=== PATIENT | female | born 1930 | race Caucasian/White ===

== ENCOUNTER 2017-05-18 15:50 | Observation (INO) | payer MEDICARE, OTHER ==
[~2017-05-18] VITALS: Ht 149.9 cm; Wt 63.3 kg
[2017-05-18] VITALS (7 sets, daily range): BP systolic 119–177; BP diastolic 51–78; PULSE 63–73; RESP 16–18; TEMP 96.6–98.3; O2SAT 93–95
[~2017-05-18 15:50] MED LIST: LEVO100T60 PO; SERT50 PO
[2017-05-18] MEDS ORDERED: LEXA10TA PO (16:06)
[2017-05-18] MEDS ORDERED: LEVO100T5 PO (16:06)
[2017-05-18] MEDS ORDERED: LEXA20TA PO (16:06)
[2017-05-18] MEDS ORDERED: [UNRECOGNIZED DRUG - OTHER] EACH EYE (16:06)
[2017-05-18] MEDS ORDERED: OMEP20TA93 PO (16:06)
[2017-05-18] MEDS ORDERED: OXYT3.9D (16:06)
[2017-05-18 16:29] LABS: AUTOMATED NEUTROPHIL # 4.3 TH/MM3 (1.8-7.7); BASOPHIL # 0.1 TH/MM3 (0-0.2); BASOPHIL % 0.9 % (0.0-2.0); EOSINOPHIL # 0.1 TH/MM3 (0-0.4); EOSINOPHIL % 1.1 % (0.0-4.0); HEMATOCRIT 43.6 % (35.0-46.0); HEMO FLAGS DIFF FINAL; LYMPH % 21.2 % (9.0-44.0); LYMPHOCYTE # 1.4 TH/MM3 (1.0-4.8); MEAN CELL VOLUME 94.7 FL (80.0-100.0); MEAN CORPUSCULAR HEMOGLOBIN 32.3 PG (27.0-34.0); MEAN CORPUSCULAR HGB CONC 34.1 % (32.0-36.0); MONO % 8.5 % (0.0-8.0); NEUT % 68.3 % (16.0-70.0); PLATELET COUNT 222 TH/MM3 (150-450); WHITE BLOOD COUNT 6.4 TH/MM3 (4.0-11.0)
[2017-05-18 16:35] LABS: POTASSIUM 4.1 MEQ/L (3.5-5.1)
[2017-05-18 16:40] LABS: APTT (PATIENT) 25.8 SEC (24.3-30.1); INTERNATIONAL NORMALIZED RATIO 0.9 RATIO; PROTHROMBIN TIME - PATIENT 10.4 SEC (9.8-11.6)
--- NOTE | 2017-05-18 16:43 | RADRPT ---
EXAM DATE/TIME: 05/18/2017 16:24 [facility] COMPARISON: No previous studies available for comparison. INDICATIONS : Confusion. RADIATION DOSE: 55.69 CTDIvol (mGy) MEDICAL HISTORY : Hypothyroidism. Carcinoma, breast. SURGICAL HISTORY : Cholecystectomy. Mastectomy, bilateral. ENCOUNTER: Initial ACUITY: 1 day PAIN SCALE: 0/10 LOCATION: cranial TECHNIQUE: Multiple contiguous axial images were obtained of the head. Using automated exposure control and adj ustment of the mA and/or kV according to patient size, radiation dose was kept as low as reasonably a chievable to obtain optimal diagnostic quality images. DICOM format image data is available electro nically for review and comparison. FINDINGS: CEREBRUM: The ventricles are normal for age. No evidence of midline shift, mass lesion, hemorrhage or acute in farction. No extra-axial fluid collections are seen. POSTERIOR FOSSA: The cerebellum and brainstem are intact. The 4th ventricle is midline. The cerebellopontine angle i s unremarkable. EXTRACRANIAL: The visualized portion of the orbits is intact. SKULL: The calvaria is intact. No evidence of skull fracture. CONCLUSION: Negative for acute process. Diaz Cronin MD FACR on May 18, 2017 at 16:41 Board Certified Radiologist. This report was verified electronically.
--- NOTE | 2017-05-18 17:13 | PD ---
HPI Chief Complaint: Neuro Symptoms/ Deficits Time Seen by Provider: 15:53 Travel History International Travel<30 days: No Contact w/Intl Traveler<30days: No Traveled to known affect area: No History of Present Illness HPI 86yo F with PMH of breast CA s/p bilateral mastectomy 1999, hypothyroidism presents to the ED stating she had a TIA. 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 Said from 1pm to 1:20pm, she did not know what happened and cant remember. Said she had a dentist appointment at 2pm today and she could not remember where the office was. Said this has never happened before. Denies any fever, chest pain, sob, n/v, abdominal pain, focal weakness or numbness. PFSH Past Medical History Depression: Yes Cancer: Yes (REMISSION AFTER MASTECTOMY) Diminished Hearing: No GERD: Yes Medical other: Yes Immunizations Current: Yes Thyroid Disease: Yes (HYPOTHYROIDISM) Tetanus Vaccination: Unknown Influenza Vaccination: No Past Surgical History Cholecystectomy: Yes Hysterectomy: Yes Joint Replacement: Yes (BILAT KNEE REPLACEMENT) Mastectomy: Yes (BILAT MASTECTOMY APPROX SEP 2008- ALL LYMPH NODE REMOVED ON LEFT) Social History Alcohol Use: Yes (1- DRINKS DAILY) Tobacco Use: No Substance Use: No Allergies-Medications (Allergen,Severity, Reaction): Coded Allergies: No Known Allergies (Verified Adverse Reaction, Unknown, 05/18/17) Reported Meds & Prescriptions Reported Meds & Active Scripts Active Reported Oxytrol Patch (Oxybutynin Chloride) 3.9 mg/24 hr Patch [Timerol ] 1 Drop EACH EYE BID Lexapro (Escitalopram Oxalate) 20 Mg Tab 20 Mg PO DAILY Lexapro (Escitalopram Oxalate) 10 Mg Tab 10 Mg PO DAILY Omeprazole 20 Mg Tab 20 Mg PO DAILY Levothyroxine (Levothyroxine Sodium) 100 Mcg Tab 100 Mcg PO DAILY Review of Systems Except as stated in HPI: all other systems reviewed are Neg Physical Exam Narrative GENERAL: 86yo F not in distress. SKIN: Focused skin assessment warm/dry. HEAD: Atraumatic. Normocephalic. EYES: Pupils equal and round. No scleral icterus. No injection or drainage. NECK: Trachea midline. No JVD. CARDIOVASCULAR: Regular rate and rhythm. No murmur appreciated. RESPIRATORY: No accessory muscle use. Clear to auscultation. Breath sounds equal bilaterally. GASTROINTESTINAL: Abdomen soft, non-tender, nondistended. MUSCULOSKELETAL: No obvious deformities. No clubbing. No cyanosis. No edema. NEUROLOGICAL: Awake and alert. No obvious cranial nerve deficits. Motor grossly within normal limits. Normal speech. NIH stroke scale 0. PSYCHIATRIC: Appropriate mood and affect; insight and judgment normal. Data Data Last Documented VS Vital Signs Date Time Temp Pulse Resp B/P (MAP) Pulse Ox O2 Delivery O2 Flow Rate FiO2 05/18/17 17:29 64 16 138/56 (83) 94 Room Air 05/18/17 16:[address] Brain W/O Iv Contrast(Rout) (05/18/17 ) Complete Blood Count With Diff (05/18/17 16:03) Basic Metabolic Panel (Bmp) (05/18/17 16:03) Prothrombin Time / Inr (Pt) (05/18/17 16:03) Act Partial Throm Time (Ptt) (05/18/17 16:03) Aspirin (Aspirin) (05/18/17 17:15) Labs Laboratory Tests Test 05/18/17 16:22 White Blood Count 6.4 TH/MM3 Red Blood Count 4.60 MIL/MM3 Hemoglobin 14.9 GM/DL Hematocrit 43.6 % Mean Corpuscular Volume 94.7 FL Mean Corpuscular Hemoglobin 32.3 PG Mean Corpuscular Hemoglobin Concent 34.1 % Red Cell Distribution Width 13.0 % Platelet Count 222 TH/MM3 Mean Platelet Volume 8.2 FL Neutrophils (%) (Auto) 68.3 % Lymphocytes (%) (Auto) 21.2 % Monocytes (%) (Auto) 8.5 % Eosinophils (%) (Auto) 1.1 % Basophils (%) (Auto) 0.9 % Neutrophils # (Auto) 4.3 TH/MM3 Lymphocytes # (Auto) 1.4 TH/MM3 Monocytes # (Auto) 0.5 TH/MM3 Eosinophils # (Auto) 0.1 TH/MM3 Basophils # (Auto) 0.1 TH/MM3 CBC Comment DIFF FINAL Differential Comment Prothrombin Time 10.4 SEC Prothromb Time International Ratio 0.9 RATIO Activated Partial Thromboplast Time 25.8 SEC Blood Urea Nitrogen 22 MG/DL Creatinine 0.71 MG/DL Random Glucose 91 MG/DL Calcium Level 9.3 MG/DL Sodium Level 137 MEQ/L Potassium Level 4.1 MEQ/L Chloride Level 100 MEQ/L Carbon Dioxide Level 31.0 MEQ/L Anion Gap 6 MEQ/L Estimat Glomerular Filtration Rate 78 ML/MIN MDM Medical Decision Making Medical Screen Exam Complete: Yes Emergency Medical Condition: Yes Differential Diagnosis TIA vs. dementia vs. delirium vs. electrolyte abnormality Narrative Course 86yo F with episode of confusion concerning for possible TIA. Pt has no symptoms now. Labs reviewed, no leukocytosis. BUN mildly elevated at 22. CT brain negative. Discussed with neurologist patient registration supervisor Dr. Valencia and agree to admit for observation for TIA work up. I discussed with pt's PMD Dr. Becerra and she agrees and said actually the hospitalist service admits her patients now. Pt given aspirin. Discussed with Dr. Curry and accepted to his service. Diagnosis Primary Impression: TIA (transient ischemic attack) Qualified Codes: G45.9 - Transient cerebral ischemic attack, unspecified Admitting Information Admitting Physician Requests: Observation Sylvia Demarco DO May 18, 2017 17:13
[2017-05-18] MEDS ORDERED: ASPIRIN 325 MG TAB PO ONE (17:15)
[2017-05-18] MEDS: SODIUM CHLOR 0.9% 1000 ML INJ 1,000 ML IV SCH ×2 (18:04→18:13)
[2017-05-18 20:39] LABS: HDL CHOLESTEROL 76.7 MG/DL (40.0-60.0)
[2017-05-18] MEDS ORDERED: ATORVASTATIN 40 MG TAB PO SCH (21:00)
[2017-05-19] VITALS (7 sets, daily range): BP systolic 117–168; BP diastolic 61–84; PULSE 62–74; RESP 16–18; TEMP 96–98.2; O2SAT 93–96
--- NOTE | 2017-05-19 08:29 | RADRPT ---
EXAM DATE/TIME: 05/19/2017 07:48 [facility] COMPARISON: No previous studies available for comparison. INDICATIONS : Transient ischemic attack. MEDICAL HISTORY : Hypothyroidism. Arthritis. Osteoporosis. GERD. Carcinoma, breast. Depression. SURGICAL HISTORY : Cholecystectomy. Mastectomy, bilateral. Hysterectomy. Bilateral cataracts and retinal detach. Bilater al knee replacement. ENCOUNTER: Initial ACUITY: 1 day PAIN SCORE: 0/10 LOCATION: Bilateral neck PEAK SYSTOLIC VELOCITIES (cm/sec): ICA/CCA RATIO: Right: 1.3 Left: 1.3 ICA: Right: 75 Left: 87 CCA: Right: 57 Left: 67 ECA: Right: 58 Left: 47 VERTEBRAL: Right: 36 antegrade Left: 49 antegrade Elevated flow velocities and ICA/CCA ratios have been found to correlate with increased degrees of vessel stenosis, calculated as percentage of diameter relative to a normal segment of distal ICA/CCA FINDINGS: RIGHT CAROTID: No significant stenosis is visualized. The waveforms are within normal limits. LEFT CAROTID: No significant stenosis is visualized. The waveforms are within normal limits. VERTEBRAL ARTERIES: Antegrade flow is seen in both vertebral arteries. MISCELLANEOUS: None. CONCLUSION: 1. Patent carotid arteries bilaterally. 2. Antegrade flow involving both vertebral arteries. Harley Parra Jr., MD on May 19, 2017 at 8:25 Board Certified Radiologist. This report was verified electronically.
[2017-05-19] MEDS ORDERED: ESCITALOPRAM OXALATE 20 MG TAB PO SCH (11:00)
[2017-05-19] MEDS ORDERED: LEVOTHYROXINE SODIUM 100 MCG TAB PO ONE (12:45)
[2017-05-19] MEDS ORDERED: PANTOPRAZOLE SOD 20 MG DELAYED RELEASE TAB PO SCH (12:45)
[2017-05-19] MEDS: SODIUM CHLOR 0.9% 1000 ML INJ 1,000 ML IV SCH (13:38)
--- NOTE | 2017-05-19 15:20 | RADRPT ---
EXAM DATE/TIME: 05/19/2017 14:12 [facility] COMPARISON: CT BRAIN W/O CONTRAST, May 18, 2017, 16:24. INDICATIONS : CVA. MEDICAL HISTORY : Carcinoma, breast. Hypothyroidism. Arthritis. Osteoporosis. GERD. SURGICAL HISTORY : Mastectomy, bilateral. Cholecystectomy. Hysterectomy. Bilateral knee replacement. Cataracts. ENCOUNTER: Subsequent ACUITY: 2 day PAIN SCORE: 0/10 LOCATION: cranial TECHNIQUE: Multiplanar, multisequence MRI of the brain was performed without contrast. FINDINGS: CEREBRUM: The ventricles are normal for age. No evidence of midline shift, mass lesion, hemorrhage or acute in farction. No extraaxial fluid collections are seen. The pituitary gland and suprasellar cistern are normal in configuration. WHITE MATTER: Extensive periventricular high flair signal involving both cerebral hemispheres. High flair signal wi thin the central portion of the sarkis. No involvement of the peripheral portion of the sarkis or subcort ical U. fibers. POSTERIOR FOSSA: The cerebellum and brainstem are intact. The 4th ventricle is midline. The cerebellopontine angle is unremarkable. The cerebellar tonsils are normal in position. DIFFUSION IMAGING: No focal areas of restricted diffusion are seen. No evidence of acute infarction. EXTRACRANIAL: The visualized portions of the orbits and paranasal sinuses are unremarkable. CONCLUSION: 1. No acute intracranial abnormality. 2. Extensive chronic small vessel ischemic change. 3. Atrophy. Harley Parra Jr., MD on May 19, 2017 at 15:13 Board Certified Radiologist. This report was verified electronically.
[2017-05-19] MEDS ORDERED: ASPI-183 PO (17:23)
[2017-05-19] MEDS ORDERED: ATOR40TA16 PO (17:23)
--- NOTE | 2017-05-19 17:24 | HHI.DCPOC ---
Discharge Care Plan Diagnosis: (1) TIA (transient ischemic attack) Goals to Promote Your Health * To prevent worsening of your condition and complications * To maintain your health at the optimal level Directions to Meet Your Goals Take your medications as prescribed Follow your dietary instruction Follow activity as directed Keep your appointments as scheduled Take your immunizations and boosters as scheduled If your symptoms worsen call your PCP, if no PCP go to Urgent Care Center or Emergency Room Smoking is Dangerous to Your Health. Avoid second hand smoke Call the 24-hour hour crisis hotline for domestic abuse at Norma Ngo May 19, 2017 17:24
--- NOTE | 2017-05-19 17:32 | HHI.HP ---
[facility] Kaley Becerra MD Admission Diagnosis TIA Diagnoses: (1) TIA (transient ischemic attack) Chief Complaint: Confusion Travel History International Travel<30 Days: No Contact w/Intl Traveler <30 Da: No Traveled to Known Affected Are: No History of Present Illness Written by Norma Ngo, acting as scribe for Dr. La on 05/19/17 at 17: 25. Ms. Mccoy is an 86-year-old female patient with a known medical history of breast cancer with mastectomy and hypothyroidism who presented to the ED with complaints of confusion. Patient states she was sitting at her computer yesterday and realized she was late for her doctor's appointment so she jumped up and got in the car and quickly forgot where she was headed. She went back inside to look on her calendar, quickly remembering her dentist appointment and then while driving she forgot again where she was going. She decided to come into the ED instead. She denies ever having this type of episode in the past. Denies any recent fever, chills, chest pain, cough, shortness of breath, ab pain , n/v/d or dysuria. Does admit to relatively good health. Review of Systems Constitutional: DENIES: Fever Endocrine: DENIES: Polyuria Eyes: DENIES: Blurred vision Respiratory: DENIES: Cough, Shortness of breath Cardiovascular: DENIES: Chest pain, Palpitations Gastrointestinal: DENIES: Abdominal pain, Black stools, Constipation, Diarrhea , Nausea, Vomiting Psychiatric: COMPLAINS OF: Anxiety, Confusion Except as stated in HPI: all other systems reviewed are Neg Past Family Social History Past Medical History Breast cancer with bilateral mastectomy Hypothyroidism Past Surgical History Bilateral mastectomy Cholecystectomy Bilateral knee replacement Reported Medications Active Aspirin 325 Mg Tab 325 Mg PO DAILY Atorvastatin (Atorvastatin Calcium) 40 Mg Tab 40 Mg PO HS 30 Days Reported Oxytrol Patch (Oxybutynin Chloride) 3.9 mg/24 hr Patch [Timerol ] 1 Drop EACH EYE BID Lexapro (Escitalopram Oxalate) 20 Mg Tab 20 Mg PO DAILY Lexapro (Escitalopram Oxalate) 10 Mg Tab 10 Mg PO DAILY Omeprazole 20 Mg Tab 20 Mg PO DAILY Levothyroxine (Levothyroxine Sodium) 100 Mcg Tab 100 Mcg PO DAILY Allergies: Coded Allergies: No Known Allergies (Verified Allergy, Unknown, 05/18/17) Active Ordered Medications Current Medications Medications (Trade) Dose Ordered Sig/Catalina Route Start Time Stop Time Status Last Admin Sodium Chloride 1,000 ml @ 100 mls/hr Q10H IV 05/18/17 17:38 (Lipitor) 40 mg HS PO 05/18/17 21:00 (Lexapro) 20 mg DAILY PO 05/19/17 11:00 05/19/17 11:57 (Synthroid) 100 mcg DAILY@0600 PO 05/20/17 12:00 Patient Own Medication PT OWN MED: BID EACH EYE 05/19/17 21:00 Future Hold (Protonix) 20 mg DAILY PO 05/19/17 12:45 05/19/17 12:36 Family History Daughter has active dementia. Social History Denies any current tobacco use. Denies any alcohol use. Denies any illicit drug use. Physical Exam Vital Signs Vital Signs Date Time Temp Pulse Resp B/P (MAP) Pulse Ox O2 Delivery O2 Flow Rate FiO2 05/19/17 16:00 97.0 74 16 117/71 (86) 96 05/19/17 15:13 66 05/19/17 12:00 98.2 66 16 124/71 (88) 93 05/19/17 08:00 96.0 69 96 05/19/17 07:00 69 05/19/17 04:00 96.9 69 16 126/61 (82) 93 05/19/17 00:00 96.5 62 18 168/84 (112) 94 05/18/17 23:00 66 05/18/17 20:06 68 18 129/58 (81) 100 05/18/17 20:00 96.6 63 18 144/65 (91) 95 05/18/17 19:00 70 16 124/51 (75) 95 Room Air 05/18/17 19:00 70 16 95 Room Air 05/18/17 18:46 98.1 73 17 119/55 (76) 95 Room Air 05/18/17 17:29 64 16 138/56 (83) 94 Room Air Physical Exam GENERAL: This is a well-nourished, well-developed patient, in no apparent distress. SKIN: No rashes, ecchymoses or lesions. Cool and dry. HEAD: Atraumatic. Normocephalic. No temporal or scalp tenderness. EYES: Pupils equal round and reactive. Extraocular motions intact. No scleral icterus. No injection or drainage. ENT: Nose without bleeding, purulent drainage or septal hematoma. Throat without erythema, tonsillar hypertrophy or exudate. Uvula midline. Airway patent. NECK: Trachea midline. No JVD or lymphadenopathy. Supple, nontender, no meningeal signs. CARDIOVASCULAR: Regular rate and rhythm without murmurs, gallops, or rubs. RESPIRATORY: Clear to auscultation. Breath sounds equal bilaterally. No wheezes , rales, or rhonchi. GASTROINTESTINAL: Abdomen soft, non-tender, nondistended. No hepato-splenomegaly , or palpable masses. No guarding. MUSCULOSKELETAL: Extremities without clubbing, cyanosis, or edema. No joint tenderness, effusion, or edema noted. No calf tenderness. Negative Homans sign bilaterally. NEUROLOGICAL: Awake and alert. Cranial nerves II through XII intact. Motor and sensory grossly within normal limits. Five out of 5 muscle strength in all muscle groups. Normal speech. Result Diagram: 05/18/17 1622 05/18/17 1622 Imaging Last Impressions Carotid Artery Ultrasound 05/19/17 06 Signed Impressions: Service Date/Time: Friday, May 19, 2017 07:48 - CONCLUSION: 1. Patent carotid arteries bilaterally. 2. Antegrade flow involving both vertebral arteries. Harley aPrra Jr., MD Brain MRI 05/19/17 0600 Signed Impressions: Service Date/Time: Friday, May 19, 2017 14:12 - CONCLUSION: 1. No acute intracranial abnormality. 2. Extensive chronic small vessel ischemic change. 3. Atrophy. Harley Parra Jr., MD Head CT 05/18/17 0000 Signed Impressions: Service Date/Time: Thursday, May 18, 2017 16:24 - CONCLUSION: Negative for acute process. Diaz Cronin MD FACR Caprini VTE Risk Assessment Caprini VTE Risk Assessment: Mod/High Risk (score >= 2) Caprini Risk Assessment Model Point Value = 1 Point Value = 2 Point Value = 3 Point Value = 5 Age 41-60 Minor surgery BMI > 25 kg/m2 Swollen legs Varicose veins or History of unexplained or recurrent spontaneous Oral contraceptives or hormone replacement Sepsis (< 1 month) Serious lung disease, including pneumonia (< 1 month) Abnormal pulmonary function Acute myocardial infarction Congestive heart failure (< 1 month) History of inflammatory bowel disease Medical patient at bed rest Age 61-74 Arthroscopic surgery Major open surgery (> 45 min) Laparoscopic surgery (> 45 min) Malignancy Confined to bed (> 72 hours) Immobilizing plaster cast Central venous access Age >= 75 History of VTE Family history of VTE Factor V Leiden Prothrombin [id number] Lupus anticoagulant Anticardiolipin antibodies Elevated serum homocysteine Heparin-induced thrombocytopenia Other congenital or acquired thrombophilia Stroke (< 1 month) Elective arthroplasty Hip, pelvis, or leg fracture Acute spinal cord injury (< 1 month) Prophylaxis Regimen Total Risk Factor Score Risk Level Prophylaxis Regimen 0-1 Low Early ambulation 2 Moderate Order ONE of the following: *Sequential Compression Device (SCD) *Heparin 5000 units SQ BID 3-4 Higher Order ONE of the following medications: *Heparin 5000 units SQ TID *Enoxaparin/Lovenox 40 mg SQ daily (WT < 150 kg, CrCl > 30 mL/min) *Enoxaparin/Lovenox 30 mg SQ daily (WT < 150 kg, CrCl > 10-29 mL/min) *Enoxaparin/Lovenox 30 mg SQ BID (WT < 150 kg, CrCl > 30 mL/min) AND/OR *Sequential Compression Device (SCD) 5 or more Highest Order ONE of the following medications: *Heparin 5000 units SQ TID (Preferred with Epidurals) *Enoxaparin/Lovenox 40 mg SQ daily (WT < 150 kg, CrCl > 30 mL/min) *Enoxaparin/Lovenox 30 mg SQ daily (WT < 150 kg, CrCl > 10-29 mL/min) *Enoxaparin/Lovenox 30 mg SQ BID (WT < 150 kg, CrCl > 30 mL/min) AND *Sequential Compression Device (SCD) Assessment and Plan Assessment and Plan Ms. Mccoy is an 86-year-old female patient with a known medical history of breast cancer with mastectomy and hypothyroidism who presented to the ED with complaints of confusion. Transient global amnesia suspect secondary to transient ischemia attack - CT head reviewed showing no evidence of acute process. - Carotid ultrasound reviewed showing patent carotid arteries bilaterally. - Brain MRI reviewed showing no acute intracranial abnormality. Extensive small chronic vessel ischemic change. - CBC reviewed essentially unremarkable. Lipid panel reviewed showing dyslipidemia. - Encouraged PO intake, ensure hydration NS at 100 ml/hr. - BP elevated on presentation, now controlled. - Patient states she is at her baseline. Denies any further confusion or memory problems. - Encouraged home on Aspirin. Patient states she has an outpatient procedure in the near future and wondering about having to stop the Aspirin. Encouraged to follow up with PCP upon discharge and recommendations regarding outpatient surgery. Hypothyroidism, chronic: Continue home levothyroxine. Dyslipidemia: Lipid panel reviewed. Placed on Atorvastatin. Depression, chronic: Continue home Lexapro. GERD: Continue home Omeprazole. DVT Prophylaxis: SCDs. Ambulation. Will discharge patient today. Denies any further complaints, resolution of all symptoms. Agreeable to follow up with PCP upon discharge. Orders for statin and aspirin upon discharge. This note was transcribed by [email or web address]. I, Dr. Kelly La personally performed the history, physical exam, and medical decision making; and confirmed the accuracy of the information in the transcribed note. Authenticated by Dr. Kelly La on 05/20/17 at 12:56. Problem Qualifiers (1) TIA (transient ischemic attack): Qualified Codes: G45.9 - Transient cerebral ischemic attack, unspecified Norma Ngo May 19, 2017 17:32 Kelly La MD May 20, 2017 12:56
[2017-05-19] MEDS ORDERED: [UNRECOGNIZED DRUG - OTHER] EACH EYE SCH (21:00)
[2017-05-20] MEDS ORDERED: LEVOTHYROXINE SODIUM 100 MCG TAB PO SCH (12:00)
== END 2017-05-19 18:09 | disposition home or self-care (01) ==
LOC: PHED 15:50 → PHEDA 17:55 → PH3A 19:57
PROVIDERS: ADMIT Family Medicine; ATTEND Family Medicine
DX: G45.9 Transient cerebral ischemic attack, unspecified (principal); E03.9 Hypothyroidism, unspecified; K21.9 Gastro-esophageal reflux disease without esophagitis; F32.9 Major depressive disorder, single episode, unspecified; E78.5 Hyperlipidemia, unspecified; Z90.13 Acquired absence of bilateral breasts and nipples; Z85.3 Personal history of malignant neoplasm of breast; Z96.653 Presence of artificial knee joint, bilateral
CPT/HCPCS: 70450; 70551; 80048; 80061; 85025; 85610; 85730; 93880; 97162; 99285; G0378; G8987; G8988; J7030